=== PATIENT | male | born 1955 | race Caucasian/White ===

== ENCOUNTER 2017-03-17 20:57 | Emergency (ER) | payer OTHER ==
[2017-03-17] MEDS ORDERED: morphine 4 MG/ML VIAL IV (22:14)
[2017-03-17] MEDS: LIDOCAINE 2% 20 ML UROJET SYRINGE MM (22:18)
[2017-03-17] MEDS: morphine 4 MG/ML VIAL IM (22:37)
[2017-03-17 22:46] LABS: URINE PH (Dip) POC 8.5 (5.0-8.5)
[2017-03-17 22:46] LABS: URINE BLOOD (Dip) POC 3+ (NEGATIVE); URINE GLUCOSE (Dip) POC Negative (NEGATIVE); URINE KETONES (Dip) POC 1+ (NEGATIVE); URINE LEUKOCYTE EST (Dip) POC 3+ (NEGATIVE); URINE NITRITE (Dip) POC Negative (NEGATIVE); URINE TOTAL PROTEIN POC 3+ (NEGATIVE)
[2017-03-18 00:47] LABS: ADD MAN DIFF? NO
[2017-03-18 00:56] LABS: WHITE BLOOD COUNT 9.3 10^3/ul (4.8-10.8)
[2017-03-18 00:56] LABS: BASOPHILS % 0.4 % (0.0-2.0); EOSINOPHILS % 0.3 % (0.0-7.0); HEMATOCRIT 37.6 % (42.0-52.0); HEMOGLOBIN 12.7 g/dl (14.0-18.0); LYMPHOCYTES # 0.8 10^3/ul (0.8-2.9); MEAN CORPUSCULAR HEMOGLOBIN 28.6 pg (29.0-33.0); MEAN CORPUSCULAR HGB CONC 33.8 g/dl (32.0-37.0); MEAN CORPUSCULAR VOLUME 84.7 fl (82.0-101.0); MEAN PLATELET VOLUME 9.6 fl (7.4-10.4); MONOCYTE # 0.6 10^3/ul (0.3-0.9); MONOCYTES % 6.3 % (0.0-11.0); NEUTROPHIL # 7.8 10^3/ul (1.6-7.5); NEUTROPHILS % 83.8 % (39.0-77.0); PLATELET COUNT 279 10^3/UL (140-415); RED BLOOD COUNT 4.44 10^6/ul (4.70-6.10)
[2017-03-18 01:13] LABS: ANION GAP 18 (8-16); BLOOD UREA NITROGEN 19 mg/dl (7-20); CALCIUM 10.1 mg/dl (8.4-10.2); CARBON DIOXIDE 26 mmol/L (21-31); CHLORIDE 103 mmol/L (97-110); CREATININE 1.37 mg/dl (0.61-1.24); GLUCOSE 135 mg/dl (70-220); SODIUM 144 mmol/L (135-144)
[2017-03-18] MEDS: LABETALOL HCL 20MG INJ IV (01:13)
[2017-03-18] MEDS: morphine 4 MG/ML VIAL IV (01:16)
[2017-03-18 01:25] LABS: TROPONIN-I 0.056 ng/ml (0.00-0.12)
[2017-03-18 01:32] LABS: POTASSIUM 2.8 mmol/L (3.5-5.1)
[2017-03-18] MEDS: HYDROmorphONE 1 MG/ML SYG IV (01:56)
[2017-03-18] MEDS: hydrALAzine 20 MG INJ IV (02:17)
[2017-03-18] MEDS: SOD CHLORIDE 0.9% 1,000 ML IV ×2 (02:42→03:31)
[2017-03-18] MEDS: POTASSIUM CHLORIDE (SR) 20 MEQ TAB PO (02:52)
[2017-03-18] MEDS: POTASSIUM CHLORIDE (SR) 10 MEQ TAB PO (02:53)
[2017-03-18] MEDS: ONDANSETRON 4 MG INJ IV (02:53)
== END 2017-03-18 08:30 | disposition short-term general hospital (02) ==
LOC: E/R 20:57
DX: I16.1 Hypertensive emergency (principal); N28.9 Disorder of kidney and ureter, unspecified; I50.9 Heart failure, unspecified; E87.6 Hypokalemia; Z87.891 Personal history of nicotine dependence
CPT/HCPCS: 36415; 71045; 74176; 80048; 81003; 84484; 85025; 87086; 93005; 96372; 96374; 96375; 99291-25

== ENCOUNTER 2017-09-24 13:32 | Inpatient (IN) | payer OTHER ==
[2017-09-24 14:04] LABS: ADD MAN DIFF? NO
[2017-09-24 14:07] LABS: BASOPHILS % 0.2 % (0.0-2.0); HEMATOCRIT 30.7 % (42.0-52.0); HEMOGLOBIN 10.5 g/dl (14.0-18.0); LYMPHOCYTES # 0.7 10^3/ul (0.8-2.9); LYMPHOCYTES % 7.8 % (15.0-51.0); MEAN CORPUSCULAR HEMOGLOBIN 30.3 pg (29.0-33.0); MEAN CORPUSCULAR HGB CONC 34.2 g/dl (32.0-37.0); MEAN CORPUSCULAR VOLUME 88.7 fl (82.0-101.0); MEAN PLATELET VOLUME 9.1 fl (7.4-10.4); MONOCYTE # 0.8 10^3/ul (0.3-0.9); MONOCYTES % 9.9 % (0.0-11.0); NEUTROPHIL # 6.9 10^3/ul (1.6-7.5); NEUTROPHILS % 81.7 % (39.0-77.0); NUCLEATED RED BLOOD CELLS% 0.4 /100WBC (0.0-0.0); PLATELET COUNT 376 10^3/UL (140-415); RED BLOOD COUNT 3.46 10^6/ul (4.70-6.10); RED CELL DISTRIBUTION WIDTH 19.9 % (11.5-14.5)
[2017-09-24 14:07] LABS: WHITE BLOOD COUNT 8.5 10^3/ul (4.8-10.8)
[2017-09-24 14:24] LABS: ALANINE AMINOTRANSFERASE 199 IU/L (13-69); ALBUMIN 3.5 g/dl (3.3-4.9); ALBUMIN/GLOBULIN RATIO 0.97; ALKALINE PHOSPHATASE 333 IU/L (42-121); ANION GAP 15 (8-16); ASPARTATE AMINO TRANSFERASE 515 IU/L (15-46); BILIRUBIN,INDIRECT 2.1 mg/dl (0-1.1); BILIRUBIN,TOTAL 9.7 mg/dl (0.2-1.3); BLOOD UREA NITROGEN 43 mg/dl (7-20); CALCIUM 9.2 mg/dl (8.4-10.2); CARBON DIOXIDE 20 mmol/L (21-31); CHLORIDE 109 mmol/L (97-110); CREATININE 1.88 mg/dl (0.61-1.24); GLUCOSE 102 mg/dl (70-220); LIPASE 87 U/L (23-300); POTASSIUM 4.3 mmol/L (3.5-5.1); SODIUM 140 mmol/L (135-144); TOTAL PROTEIN 7.1 g/dl (6.1-8.1)
[2017-09-24 14:30] LABS: INR 1.14; PROTIME 14.8 Sec (11.9-14.9); PT RATIO 1.2
[2017-09-24 14:31] LABS: PARTIAL THROMBOPLASTIN TIME 30.8 Sec (25.0-35.0)
[2017-09-24] MEDS: HYDROmorphONE 1 MG/ML SYG IV (14:36)
[2017-09-24] MEDS: ONDANSETRON 4 MG INJ IV (14:36)
[2017-09-24] MEDS: SOD CHLORIDE 0.9% 1,000 ML IV (14:36)
[2017-09-24] MEDS ORDERED: ONDANSETRON 4 MG INJ IV (19:00)
[2017-09-24] MEDS ORDERED: ACETAMINOPHEN 325 MG TAB PO (19:00)
[2017-09-24] MEDS ORDERED: NACL 0.9% 3 ML SYG IV (19:00)
[2017-09-24 21:53] LABS: ADD UMIC YES; UR ASCORBIC ACID NEGATIVE (NEGATIVE); UR BACTERIA FEW /HPF (NONE SEEN); UR BILIRUBIN (Dip) 1+ mg/dL (NEGATIVE); UR BLOOD (Dip) 1+ mg/dL (NEGATIVE); UR CLARITY SLIGHTLY CLOUDY (CLEAR); UR COLOR AMBER (YELLOW); UR GLUCOSE (Dip) NEGATIVE (NEGATIVE); UR KETONES (Dip) NEGATIVE (NEGATIVE); UR LEUKOCYTE ESTERASE (Dip) 2+ Leu/ul (NEGATIVE); UR MUCUS FEW /HPF (NONE SEEN); UR NITRITE (Dip) NEGATIVE (NEGATIVE); UR RBC 7 /HPF (0-5); UR SPECIFIC GRAVITY (Dip) 1.016 (1.003-1.030); UR SQUAMOUS EPITHELIAL CELL FEW /HPF (FEW); UR TOTAL PROTEIN (Dip) 1+ mg/dl (NEGATIVE); UR UROBILINOGEN (Dip) 2+ mg/dL (NEGATIVE); UR WBC 87 /HPF (0-5)
[2017-09-24] MEDS: HEPARIN 5,000 UNIT/0.5 ML VIAL SC (23:31)
[2017-09-24] MEDS: HYDROmorphONE 0.5 MG/0.5 ML SYG IV (23:31)
[2017-09-25] MEDS: HEPARIN 5,000 UNIT/0.5 ML VIAL SC ×3 (06:12→23:14)
[2017-09-25] MEDS: HYDROmorphONE 0.5 MG/0.5 ML SYG IV ×3 (06:22→23:18)
[2017-09-25 08:04] LABS: ADD MAN DIFF? NO
[2017-09-25 08:09] LABS: WHITE BLOOD COUNT 8.5 10^3/ul (4.8-10.8)
[2017-09-25 08:09] LABS: BASOPHILS % 0.2 % (0.0-2.0); EOSINOPHILS % 0.1 % (0.0-7.0); HEMATOCRIT 31.7 % (42.0-52.0); HEMOGLOBIN 10.3 g/dl (14.0-18.0); LYMPHOCYTES # 0.7 10^3/ul (0.8-2.9); LYMPHOCYTES % 8.5 % (15.0-51.0); MEAN CORPUSCULAR HEMOGLOBIN 29.7 pg (29.0-33.0); MEAN CORPUSCULAR HGB CONC 32.5 g/dl (32.0-37.0); MEAN CORPUSCULAR VOLUME 91.4 fl (82.0-101.0); MEAN PLATELET VOLUME 10.1 fl (7.4-10.4); MONOCYTE # 0.9 10^3/ul (0.3-0.9); MONOCYTES % 10.1 % (0.0-11.0); NEUTROPHIL # 6.8 10^3/ul (1.6-7.5); NEUTROPHILS % 80.6 % (39.0-77.0); NUCLEATED RED BLOOD CELLS # 0.1 10^3/ul (0.0-0.0); NUCLEATED RED BLOOD CELLS% 0.7 /100WBC (0.0-0.0); PLATELET COUNT 367 10^3/UL (140-415); RED BLOOD COUNT 3.47 10^6/ul (4.70-6.10); RED CELL DISTRIBUTION WIDTH 20.7 % (11.5-14.5)
[2017-09-25 08:29] LABS: ALANINE AMINOTRANSFERASE 275 IU/L (13-69); ALBUMIN 3.2 g/dl (3.3-4.9); ALBUMIN/GLOBULIN RATIO 0.86; ALKALINE PHOSPHATASE 302 IU/L (42-121); ANION GAP 15 (8-16); ASPARTATE AMINO TRANSFERASE 714 IU/L (15-46); BILIRUBIN,INDIRECT 1.9 mg/dl (0-1.1); BILIRUBIN,TOTAL 10.1 mg/dl (0.2-1.3); BLOOD UREA NITROGEN 47 mg/dl (7-20); CALCIUM 9.1 mg/dl (8.4-10.2); CARBON DIOXIDE 21 mmol/L (21-31); CHLORIDE 110 mmol/L (97-110); CREATININE 2.14 mg/dl (0.61-1.24); GLUCOSE 91 mg/dl (70-220); POTASSIUM 4.8 mmol/L (3.5-5.1); SODIUM 141 mmol/L (135-144); TOTAL PROTEIN 6.9 g/dl (6.1-8.1)
[2017-09-25] MEDS ORDERED: LOSARTAN 50 MG TAB PO (09:00)
[2017-09-25] MEDS: BICALUTAMIDE 50 MG TAB PO (09:44)
[2017-09-25] MEDS: METOPROLOL (XL) 50 MG TAB PO (09:45)
[2017-09-25] MEDS ORDERED: POLYETHYLENE GLYCOL 17 GM PACKET PO (10:00)
[2017-09-25] MEDS: SOD CHLORIDE 0.9% 1,000 ML IV ×2 (10:30→18:58)
[2017-09-25] MEDS: CEFTRIAXONE 1 GM/50 ML (PMX) 50 ML IVPB (10:41)
[2017-09-25] MEDS: DOCUSATE SODIUM 100 MG CAP PO (10:41)
[2017-09-25] MEDS: oxyCODONE 5 MG TAB PO (13:56)
[2017-09-26] MEDS: SOD CHLORIDE 0.9% 1,000 ML IV (05:18)
[2017-09-26] MEDS: HEPARIN 5,000 UNIT/0.5 ML VIAL SC ×3 (05:20→21:45)
[2017-09-26] MEDS: HYDROmorphONE 0.5 MG/0.5 ML SYG IV (05:21)
[2017-09-26 07:26] LABS: ALANINE AMINOTRANSFERASE 398 IU/L (13-69); ALBUMIN 3.2 g/dl (3.3-4.9); ALBUMIN/GLOBULIN RATIO 0.84; ALKALINE PHOSPHATASE 288 IU/L (42-121); ANION GAP 20 (8-16); BILIRUBIN,INDIRECT 1.8 mg/dl (0-1.1); BILIRUBIN,TOTAL 10.1 mg/dl (0.2-1.3); BLOOD UREA NITROGEN 49 mg/dl (7-20); CARBON DIOXIDE 17 mmol/L (21-31); CHLORIDE 109 mmol/L (97-110); CREATININE 2.46 mg/dl (0.61-1.24); GLUCOSE 77 mg/dl (70-220); POTASSIUM 5.3 mmol/L (3.5-5.1); SODIUM 141 mmol/L (135-144)
[2017-09-26 07:35] LABS: ASPARTATE AMINO TRANSFERASE 1153 IU/L (15-46)
[2017-09-26] MEDS: oxyCODONE 5 MG TAB PO ×2 (07:41→21:44)
[2017-09-26] MEDS: DOCUSATE SODIUM 100 MG CAP PO (08:50)
[2017-09-26] MEDS: METOPROLOL (XL) 50 MG TAB PO (08:50)
[2017-09-26] MEDS: SOD CHLORIDE 0.45% 1,000 ML IV ×2 (09:18→21:46)
[2017-09-26] MEDS: NA POLYST SULFON 15 GM/60 ML BTL PO (10:09)
[2017-09-26] MEDS: CEFTRIAXONE 1 GM/50 ML (PMX) 50 ML IVPB (10:09)
[2017-09-26 14:23] LABS: CREATININE,URINE RANDOM 180.32 mg/dl (20-370)
[2017-09-26 14:25] LABS: SODIUM,URINE RANDOM < 13 mmol/L (30-90)
[2017-09-27] MEDS: HEPARIN 5,000 UNIT/0.5 ML VIAL SC ×3 (05:32→21:27)
[2017-09-27] MEDS: oxyCODONE 5 MG TAB PO ×2 (05:38→21:22)
[2017-09-27 06:48] LABS: ALKALINE PHOSPHATASE 266 IU/L (42-121)
[2017-09-27 06:57] LABS: ALANINE AMINOTRANSFERASE 604 IU/L (13-69); ALBUMIN 3.1 g/dl (3.3-4.9); ALBUMIN/GLOBULIN RATIO 0.86; ALKALINE PHOSPHATASE 271 IU/L (42-121); ANION GAP 21 (8-16); BILIRUBIN,INDIRECT 1.8 mg/dl (0-1.1); BILIRUBIN,TOTAL 10.3 mg/dl (0.2-1.3); BLOOD UREA NITROGEN 54 mg/dl (7-20); CALCIUM 8.6 mg/dl (8.4-10.2); CARBON DIOXIDE 15 mmol/L (21-31); CHLORIDE 108 mmol/L (97-110); CREATININE 2.65 mg/dl (0.61-1.24); GLUCOSE 83 mg/dl (70-220); POTASSIUM 5.4 mmol/L (3.5-5.1); SODIUM 139 mmol/L (135-144); TOTAL PROTEIN 6.7 g/dl (6.1-8.1)
[2017-09-27] MEDS: DOCUSATE SODIUM 100 MG CAP PO (09:00)
[2017-09-27] MEDS: CEFTRIAXONE 1 GM/50 ML (PMX) 50 ML IVPB (10:30)
[2017-09-27] MEDS: SOD CHLORIDE 0.45% 1,000 ML IV (10:30)
[2017-09-27] MEDS: METOPROLOL (XL) 50 MG TAB PO (10:31)
[2017-09-27] MEDS: NA POLYST SULFON 15 GM/60 ML BTL PO (10:32)
[2017-09-27] MEDS ORDERED: VITAMIN A & D 5 GM OINT PACKET TOP (11:11)
[2017-09-27] MEDS ORDERED: VANCOMYCIN IV PER PHARMACY XX (15:00)
[2017-09-27] MEDS: SODIUM BICARBONATE (IV ADD) 100 MEQ in DEXTROSE 5% 1,000 ML IV (18:39)
[2017-09-27] MEDS: VANCOMYCIN 1.25 GM in SOD CHLORIDE 0.9% 250 ML IVPB (18:39)
[2017-09-28] MEDS: oxyCODONE 5 MG TAB PO ×2 (03:15→20:31)
[2017-09-28 06:10] LABS: ALBUMIN/GLOBULIN RATIO 0.74; ANION GAP 19 (8-16); BILIRUBIN,TOTAL 10.1 mg/dl (0.2-1.3)
[2017-09-28 06:17] LABS: BLOOD UREA NITROGEN 60 mg/dl (7-20); CALCIUM 8.1 mg/dl (8.4-10.2); CARBON DIOXIDE 16 mmol/L (21-31); CHLORIDE 106 mmol/L (97-110); CREATININE 2.79 mg/dl (0.61-1.24); GLUCOSE 104 mg/dl (70-220); POTASSIUM 4.3 mmol/L (3.5-5.1); SODIUM 137 mmol/L (135-144)
[2017-09-28 06:18] LABS: ALANINE AMINOTRANSFERASE 494 IU/L (13-69); ALBUMIN 2.6 g/dl (3.3-4.9); ALKALINE PHOSPHATASE 214 IU/L (42-121); BILIRUBIN,INDIRECT 1.7 mg/dl (0-1.1); TOTAL PROTEIN 6.1 g/dl (6.1-8.1)
[2017-09-28] MEDS: HEPARIN 5,000 UNIT/0.5 ML VIAL SC ×3 (06:24→22:09)
[2017-09-28 06:27] LABS: ASPARTATE AMINO TRANSFERASE 1326 IU/L (15-46)
[2017-09-28] MEDS: DOCUSATE SODIUM 100 MG CAP PO (10:09)
[2017-09-28] MEDS: METOPROLOL (XL) 50 MG TAB PO (10:09)
[2017-09-28] MEDS: AMPICILLIN 1 GM/NS (PMX) 50 ML IVPB ×2 (12:44→17:37)
[2017-09-28] MEDS: SODIUM BICARBONATE (IV ADD) 100 MEQ in DEXTROSE 5% 1,000 ML IV (20:27)
[2017-09-29] MEDS ORDERED: VANCOMYCIN 750 MG in SOD CHLORIDE 0.9% 150 ML IVPB (05:00)
[2017-09-29] MEDS: AMPICILLIN 1 GM/NS (PMX) 50 ML IVPB ×5 (05:48→23:42)
[2017-09-29] MEDS: HEPARIN 5,000 UNIT/0.5 ML VIAL SC ×3 (05:50→21:53)
[2017-09-29 06:42] LABS: ALANINE AMINOTRANSFERASE 383 IU/L (13-69); ALBUMIN 2.6 g/dl (3.3-4.9); ALBUMIN/GLOBULIN RATIO 0.74; ALKALINE PHOSPHATASE 191 IU/L (42-121); ANION GAP 19 (8-16); BILIRUBIN,INDIRECT 1.7 mg/dl (0-1.1); BILIRUBIN,TOTAL 11.2 mg/dl (0.2-1.3); BLOOD UREA NITROGEN 69 mg/dl (7-20); CARBON DIOXIDE 18 mmol/L (21-31); CHLORIDE 103 mmol/L (97-110); CREATININE 3.02 mg/dl (0.61-1.24); GLUCOSE 95 mg/dl (70-220); POTASSIUM 4.2 mmol/L (3.5-5.1); SODIUM 136 mmol/L (135-144); TOTAL PROTEIN 6.1 g/dl (6.1-8.1)
[2017-09-29 07:15] LABS: ASPARTATE AMINO TRANSFERASE 787 IU/L (15-46)
[2017-09-29] MEDS: MIDODRINE 5 MG TAB PO ×2 (08:46→16:53)
[2017-09-29] MEDS: METOPROLOL (XL) 50 MG TAB PO (08:47)
[2017-09-29] MEDS: DOCUSATE SODIUM 100 MG CAP PO (08:47)
[2017-09-29] MEDS: OCTREOTIDE 50 MCG INJ SC ×3 (10:31→20:33)
[2017-09-29] MEDS: ZOLPIDEM 5 MG TAB PO (23:46)
[2017-09-30] MEDS: oxyCODONE 5 MG TAB PO (00:50)
[2017-09-30] MEDS: AMPICILLIN 1 GM/NS (PMX) 50 ML IVPB ×3 (05:40→18:00)
[2017-09-30] MEDS: HEPARIN 5,000 UNIT/0.5 ML VIAL SC ×3 (05:42→22:51)
[2017-09-30 05:56] LABS: ADD MAN DIFF? NO
[2017-09-30 06:00] LABS: ABNORMAL IP MESSAGE 1; BASOPHILS % 0.2 % (0.0-2.0); EOSINOPHILS % 0.1 % (0.0-7.0); HEMATOCRIT 33.1 % (42.0-52.0); HEMOGLOBIN 11.1 g/dl (14.0-18.0); LYMPHOCYTES # 0.4 10^3/ul (0.8-2.9); LYMPHOCYTES % 4.2 % (15.0-51.0); MEAN CORPUSCULAR HEMOGLOBIN 29.8 pg (29.0-33.0); MEAN CORPUSCULAR HGB CONC 33.5 g/dl (32.0-37.0); MEAN PLATELET VOLUME 10.2 fl (7.4-10.4); MONOCYTES % 10.8 % (0.0-11.0); NEUTROPHIL # 7.5 10^3/ul (1.6-7.5); PLATELET COUNT 335 10^3/UL (140-415); POSITIVE DIFF @See below; RED BLOOD COUNT 3.72 10^6/ul (4.70-6.10); RED CELL DISTRIBUTION WIDTH 24.2 % (11.5-14.5)
[2017-09-30 06:40] LABS: PHOSPHORUS 6.5 mg/dl (2.5-4.9)
[2017-09-30 06:40] LABS: MAGNESIUM 2.4 mg/dl (1.7-2.5)
[2017-09-30 06:59] LABS: ANION GAP 23 (8-16); BLOOD UREA NITROGEN 78 mg/dl (7-20); CARBON DIOXIDE 17 mmol/L (21-31); CHLORIDE 100 mmol/L (97-110); GLUCOSE 92 mg/dl (70-220); SODIUM 136 mmol/L (135-144)
[2017-09-30 07:11] LABS: CREATININE 3.49 mg/dl (0.61-1.24)
[2017-09-30] MEDS: DOCUSATE SODIUM 100 MG CAP PO (09:17)
[2017-09-30] MEDS: CITRIC ACID/SODIUM CITRATE 15 ML CUP PO ×3 (09:17→21:02)
[2017-09-30] MEDS: FAMOTIDINE 20 MG TAB PO (09:17)
[2017-09-30] MEDS: OCTREOTIDE 50 MCG INJ SC ×3 (09:17→22:52)
[2017-09-30] MEDS: POLYETHYLENE GLYCOL 17 GM PACKET PO (09:17)
[2017-09-30] MEDS: MIDODRINE 5 MG TAB PO ×2 (09:19→17:52)
[2017-09-30 11:57] LABS: AMMONIA 32 umol/l (9-30)
[2017-09-30 12:04] LABS: INR 1.37; PARTIAL THROMBOPLASTIN TIME 35.2 Sec (25.0-35.0); PROTIME 17.1 Sec (11.9-14.9); PT RATIO 1.3
[2017-09-30 12:17] LABS: ANA SCREEN NEGATIVE (NEGATIVE)
[2017-09-30 13:46] LABS: MITOCHONDRIAL TB NEGATIVE (NEGATIVE); SMOOTH MUSCLE AB SCREEN POSITIVE (NEGATIVE); SMOOTH MUSCLE AB TITER 1:40 titer (<1:20)
[2017-10-01] MEDS: AMPICILLIN 1 GM/NS (PMX) 50 ML IVPB ×4 (00:15→18:05)
[2017-10-01 05:52] LABS: ADD MAN DIFF? NO
[2017-10-01] MEDS: HEPARIN 5,000 UNIT/0.5 ML VIAL SC ×3 (05:55→21:49)
[2017-10-01 06:01] LABS: WHITE BLOOD COUNT 7.1 10^3/ul (4.8-10.8)
[2017-10-01 06:01] LABS: ABNORMAL IP MESSAGE 1; BASOPHILS % 0.4 % (0.0-2.0); EOSINOPHILS # 0.1 10^3/ul (0.0-0.5); EOSINOPHILS % 0.7 % (0.0-7.0); HEMATOCRIT 32.3 % (42.0-52.0); HEMOGLOBIN 11.1 g/dl (14.0-18.0); LYMPHOCYTES # 0.3 10^3/ul (0.8-2.9); LYMPHOCYTES % 3.7 % (15.0-51.0); MEAN CORPUSCULAR HEMOGLOBIN 31.2 pg (29.0-33.0); MEAN CORPUSCULAR HGB CONC 34.4 g/dl (32.0-37.0); MEAN CORPUSCULAR VOLUME 90.7 fl (82.0-101.0); MONOCYTE # 0.8 10^3/ul (0.3-0.9); MONOCYTES % 10.6 % (0.0-11.0); NUCLEATED RED BLOOD CELLS% 0.3 /100WBC (0.0-0.0); PLATELET COUNT 309 10^3/UL (140-415); POSITIVE DIFF @See below; RED BLOOD COUNT 3.56 10^6/ul (4.70-6.10); RED CELL DISTRIBUTION WIDTH 24.3 % (11.5-14.5)
[2017-10-01 06:22] LABS: INR 1.42; PROTIME 17.6 Sec (11.9-14.9); PT RATIO 1.4
[2017-10-01 06:54] LABS: ALANINE AMINOTRANSFERASE 255 IU/L (13-69); ALBUMIN 2.6 g/dl (3.3-4.9); ALBUMIN/GLOBULIN RATIO 0.74; ALKALINE PHOSPHATASE 181 IU/L (42-121); ANION GAP 19 (8-16); ASPARTATE AMINO TRANSFERASE 477 IU/L (15-46); BILIRUBIN,INDIRECT 1.5 mg/dl (0-1.1); BILIRUBIN,TOTAL 11.8 mg/dl (0.2-1.3); BLOOD UREA NITROGEN 89 mg/dl (7-20); CALCIUM 7.9 mg/dl (8.4-10.2); CARBON DIOXIDE 19 mmol/L (21-31); CHLORIDE 102 mmol/L (97-110); GLUCOSE 93 mg/dl (70-220); POTASSIUM 4.3 mmol/L (3.5-5.1); SODIUM 136 mmol/L (135-144); TOTAL PROTEIN 6.1 g/dl (6.1-8.1)
[2017-10-01 08:33] LABS: PHOSPHORUS 7.2 mg/dl (2.5-4.9)
[2017-10-01 08:33] LABS: MAGNESIUM 2.5 mg/dl (1.7-2.5)
[2017-10-01] MEDS: POLYETHYLENE GLYCOL 17 GM PACKET PO ×2 (09:00→14:33)
[2017-10-01] MEDS: CITRIC ACID/SODIUM CITRATE 15 ML CUP PO ×3 (09:33→21:47)
[2017-10-01] MEDS: MIDODRINE 5 MG TAB PO ×2 (09:36→18:05)
[2017-10-01] MEDS: ALBUMIN HUMAN 25% 100 ML IV ×2 (09:40→18:05)
[2017-10-01] MEDS: FAMOTIDINE 20 MG TAB PO (09:40)
[2017-10-01] MEDS: DOCUSATE SODIUM 100 MG CAP PO (09:40)
[2017-10-01] MEDS: OCTREOTIDE 50 MCG INJ SC ×3 (09:41→21:47)
[2017-10-01] MEDS: oxyCODONE 5 MG TAB PO ×2 (14:33→22:15)
[2017-10-02] MEDS: AMPICILLIN 1 GM/NS (PMX) 50 ML IVPB ×4 (00:09→22:31)
[2017-10-02] MEDS: ALBUMIN HUMAN 25% 100 ML IV ×3 (01:41→17:57)
[2017-10-02] MEDS: oxyCODONE 5 MG TAB PO (02:54)
[2017-10-02] MEDS ORDERED: morphine 2 MG INJ IV (04:00)
[2017-10-02] MEDS: HEPARIN 5,000 UNIT/0.5 ML VIAL SC ×2 (05:00→13:43)
[2017-10-02 05:57] LABS: ADD MAN DIFF? NO
[2017-10-02 06:04] LABS: WHITE BLOOD COUNT 7.4 10^3/ul (4.8-10.8)
[2017-10-02 06:04] LABS: ABNORMAL IP MESSAGE 1; BASOPHILS % 0.3 % (0.0-2.0); EOSINOPHILS % 0.1 % (0.0-7.0); HEMATOCRIT 29.1 % (42.0-52.0); HEMOGLOBIN 9.8 g/dl (14.0-18.0); LYMPHOCYTES # 0.2 10^3/ul (0.8-2.9); LYMPHOCYTES % 2.3 % (15.0-51.0); MEAN CORPUSCULAR HEMOGLOBIN 30.4 pg (29.0-33.0); MEAN CORPUSCULAR HGB CONC 33.7 g/dl (32.0-37.0); MEAN CORPUSCULAR VOLUME 90.4 fl (82.0-101.0); MEAN PLATELET VOLUME 10.4 fl (7.4-10.4); MONOCYTE # 0.7 10^3/ul (0.3-0.9); MONOCYTES % 9.2 % (0.0-11.0); NEUTROPHIL # 6.5 10^3/ul (1.6-7.5); NEUTROPHILS % 87.7 % (39.0-77.0); PLATELET COUNT 291 10^3/UL (140-415); POSITIVE DIFF @See below; RED BLOOD COUNT 3.22 10^6/ul (4.70-6.10); RED CELL DISTRIBUTION WIDTH 24.9 % (11.5-14.5)
[2017-10-02 06:29] LABS: ALANINE AMINOTRANSFERASE 176 IU/L (13-69); ALBUMIN 3.4 g/dl (3.3-4.9); ALBUMIN/GLOBULIN RATIO 1.06; ALKALINE PHOSPHATASE 133 IU/L (42-121); ANION GAP 25 (8-16); ASPARTATE AMINO TRANSFERASE 337 IU/L (15-46); BILIRUBIN,INDIRECT 2.2 mg/dl (0-1.1); BILIRUBIN,TOTAL 15.8 mg/dl (0.2-1.3); BLOOD UREA NITROGEN 93 mg/dl (7-20); CALCIUM 8.3 mg/dl (8.4-10.2); CARBON DIOXIDE 19 mmol/L (21-31); CHLORIDE 99 mmol/L (97-110); GLUCOSE 90 mg/dl (70-220); POTASSIUM 3.8 mmol/L (3.5-5.1); SODIUM 139 mmol/L (135-144); TOTAL PROTEIN 6.6 g/dl (6.1-8.1)
[2017-10-02 06:31] LABS: PHOSPHORUS 6.7 mg/dl (2.5-4.9)
[2017-10-02 06:31] LABS: INR 1.48; MAGNESIUM 2.5 mg/dl (1.7-2.5); PROTIME 18.2 Sec (11.9-14.9); PT RATIO 1.4
[2017-10-02 06:32] LABS: PARTIAL THROMBOPLASTIN TIME 46.6 Sec (25.0-35.0)
[2017-10-02 06:39] LABS: AMMONIA 69 umol/l (9-30)
[2017-10-02] MEDS: CITRIC ACID/SODIUM CITRATE 15 ML CUP PO ×3 (09:23→22:31)
[2017-10-02] MEDS: DOCUSATE SODIUM 100 MG CAP PO (09:23)
[2017-10-02] MEDS: POLYETHYLENE GLYCOL 17 GM PACKET PO (09:23)
[2017-10-02] MEDS: OCTREOTIDE 50 MCG INJ SC ×3 (09:23→22:32)
[2017-10-02] MEDS: FAMOTIDINE 20 MG TAB PO (09:23)
[2017-10-02] MEDS: MIDODRINE 5 MG TAB PO ×2 (09:30→17:56)
[2017-10-02] MEDS: LACTULOSE 30ML CUP PO ×2 (14:05→22:31)
[2017-10-02 14:43] LABS: HAAIG REFLEX REFLEX FILED
[2017-10-02 18:17] LABS: HEPATITIS B SURFACE ANTIGEN NEGATIVE (NEGATIVE)
[2017-10-02 18:29] LABS: HEPATITIS B CORE ANTIBODY NEGATIVE (NEGATIVE)
[2017-10-02 18:35] LABS: HEPATITIS C VIRAL ANTIBODY NEGATIVE (NEGATIVE)
[2017-10-02] MEDS: RIFAXIMIN 550 MG TAB PO (22:31)
[2017-10-03] MEDS: AMPICILLIN 1 GM/NS (PMX) 50 ML IVPB ×5 (00:41→23:38)
[2017-10-03] MEDS: ALBUMIN HUMAN 25% 100 ML IV ×3 (00:43→20:56)
[2017-10-03 05:39] LABS: ADD MAN DIFF? NO; HAAIG REFLEX REFLEX FILED
[2017-10-03 05:47] LABS: WHITE BLOOD COUNT 7.7 10^3/ul (4.8-10.8)
[2017-10-03 05:47] LABS: ABNORMAL IP MESSAGE 1; BASOPHILS % 0.3 % (0.0-2.0); EOSINOPHILS # 0.1 10^3/ul (0.0-0.5); EOSINOPHILS % 0.8 % (0.0-7.0); HEMATOCRIT 29.1 % (42.0-52.0); HEMOGLOBIN 9.8 g/dl (14.0-18.0); LYMPHOCYTES # 0.3 10^3/ul (0.8-2.9); LYMPHOCYTES % 4.4 % (15.0-51.0); MEAN CORPUSCULAR HEMOGLOBIN 31.1 pg (29.0-33.0); MEAN CORPUSCULAR HGB CONC 33.7 g/dl (32.0-37.0); MEAN CORPUSCULAR VOLUME 92.4 fl (82.0-101.0); MEAN PLATELET VOLUME 10.1 fl (7.4-10.4); MONOCYTE # 0.9 10^3/ul (0.3-0.9); MONOCYTES % 11.8 % (0.0-11.0); NEUTROPHIL # 6.3 10^3/ul (1.6-7.5); NEUTROPHILS % 81.8 % (39.0-77.0); PLATELET COUNT 259 10^3/UL (140-415); POSITIVE DIFF @See below; RED BLOOD COUNT 3.15 10^6/ul (4.70-6.10); RED CELL DISTRIBUTION WIDTH 26.1 % (11.5-14.5)
[2017-10-03 05:59] LABS: ALANINE AMINOTRANSFERASE 130 IU/L (13-69); ALBUMIN 3.4 g/dl (3.3-4.9); ALBUMIN/GLOBULIN RATIO 1.13; ALKALINE PHOSPHATASE 110 IU/L (42-121); ANION GAP 21 (8-16); ASPARTATE AMINO TRANSFERASE 243 IU/L (15-46); BILIRUBIN,INDIRECT 2.5 mg/dl (0-1.1); BILIRUBIN,TOTAL 16.6 mg/dl (0.2-1.3); BLOOD UREA NITROGEN 103 mg/dl (7-20); CALCIUM 8.5 mg/dl (8.4-10.2); CARBON DIOXIDE 23 mmol/L (21-31); CHLORIDE 101 mmol/L (97-110); GLUCOSE 79 mg/dl (70-220); SODIUM 141 mmol/L (135-144); TOTAL PROTEIN 6.4 g/dl (6.1-8.1)
[2017-10-03 06:05] LABS: AMMONIA 76 umol/l (9-30)
[2017-10-03 06:06] LABS: CREATININE 3.55 mg/dl (0.61-1.24)
[2017-10-03] MEDS: LACTULOSE 30ML CUP PO ×3 (06:21→23:38)
[2017-10-03 06:27] LABS: HEPATITIS B SURFACE ANTIGEN NEGATIVE (NEGATIVE)
[2017-10-03 06:42] LABS: MAGNESIUM 2.6 mg/dl (1.7-2.5)
[2017-10-03 06:42] LABS: PHOSPHORUS 7.4 mg/dl (2.5-4.9)
[2017-10-03 06:45] LABS: HEPATITIS C VIRAL ANTIBODY NEGATIVE (NEGATIVE); HIV 1&2 ANTIBODY NEGATIVE (NEGATIVE)
[2017-10-03 06:46] LABS: HEPATITIS B CORE ANTIBODY NEGATIVE (NEGATIVE)
[2017-10-03] MEDS: RIFAXIMIN 550 MG TAB PO ×2 (09:38→23:40)
[2017-10-03] MEDS: FAMOTIDINE 20 MG TAB PO (09:38)
[2017-10-03] MEDS: POLYETHYLENE GLYCOL 17 GM PACKET PO (09:38)
[2017-10-03] MEDS: MIDODRINE 5 MG TAB PO ×2 (09:38→17:23)
[2017-10-03] MEDS: DOCUSATE SODIUM 100 MG CAP PO (09:38)
[2017-10-03] MEDS: CITRIC ACID/SODIUM CITRATE 15 ML CUP PO ×3 (09:38→23:39)
[2017-10-03] MEDS: OCTREOTIDE 50 MCG INJ SC ×3 (09:39→23:39)
[2017-10-03] MEDS: morphine LIQ (10 MG/5 ML) CUP PO (09:39)
[2017-10-03] MEDS: AMIODARONE 150MG/D5W BOLUS 100 ML IV ×2 (10:30→23:38)
[2017-10-03 11:14] LABS: MAGNESIUM 2.6 mg/dl (1.7-2.5)
[2017-10-03 11:19] LABS: ANION GAP 24 (8-16); BLOOD UREA NITROGEN 99 mg/dl (7-20); CALCIUM 8.4 mg/dl (8.4-10.2); CARBON DIOXIDE 20 mmol/L (21-31); CHLORIDE 99 mmol/L (97-110); GLUCOSE 90 mg/dl (70-220); POTASSIUM 3.9 mmol/L (3.5-5.1); SODIUM 139 mmol/L (135-144)
[2017-10-03 11:32] LABS: CREATININE 3.61 mg/dl (0.61-1.24)
[2017-10-03] MEDS: AMIODARONE 900 MG in DEXTROSE 5% 482 ML IV (11:48)
[2017-10-03] MEDS: LIDOCAINE 1% (MPF) 5 ML VIAL SC (14:10)
[2017-10-03] MEDS: SOD CHLORIDE 0.9% 100 ML (14:45)
[2017-10-03] MEDS: HEPARIN 1000 UNITS/ML 10 ML INJ CATHETER (22:55)
[2017-10-04 05:23] LABS: ADD MAN DIFF? NO
[2017-10-04 05:26] LABS: ABNORMAL IP MESSAGE 1; BASOPHILS % 0.4 % (0.0-2.0); EOSINOPHILS # 0.1 10^3/ul (0.0-0.5); EOSINOPHILS % 0.8 % (0.0-7.0); HEMATOCRIT 26.6 % (42.0-52.0); HEMOGLOBIN 8.7 g/dl (14.0-18.0); LYMPHOCYTES # 0.4 10^3/ul (0.8-2.9); LYMPHOCYTES % 4.9 % (15.0-51.0); MEAN CORPUSCULAR HEMOGLOBIN 30.5 pg (29.0-33.0); MEAN CORPUSCULAR HGB CONC 32.7 g/dl (32.0-37.0); MEAN CORPUSCULAR VOLUME 93.3 fl (82.0-101.0); MEAN PLATELET VOLUME 10.1 fl (7.4-10.4); MONOCYTE # 0.9 10^3/ul (0.3-0.9); MONOCYTES % 11.6 % (0.0-11.0); NEUTROPHIL # 6.2 10^3/ul (1.6-7.5); NEUTROPHILS % 81.6 % (39.0-77.0); NUCLEATED RED BLOOD CELLS% 0.3 /100WBC (0.0-0.0); PLATELET COUNT 244 10^3/UL (140-415); POSITIVE DIFF @See below; RED BLOOD COUNT 2.85 10^6/ul (4.70-6.10); RED CELL DISTRIBUTION WIDTH 26.2 % (11.5-14.5)
[2017-10-04 05:26] LABS: WHITE BLOOD COUNT 7.5 10^3/ul (4.8-10.8)
[2017-10-04 05:56] LABS: INR 1.91; PROTIME 22.3 Sec (11.9-14.9); PT RATIO 1.7
[2017-10-04 05:57] LABS: PARTIAL THROMBOPLASTIN TIME 42.5 Sec (25.0-35.0)
[2017-10-04] MEDS: LACTULOSE 30ML CUP PO ×3 (06:00→21:38)
[2017-10-04] MEDS: AMPICILLIN 1 GM/NS (PMX) 50 ML IVPB ×4 (06:00→21:38)
[2017-10-04 06:02] LABS: MAGNESIUM 2.3 mg/dl (1.7-2.5)
[2017-10-04 06:02] LABS: PHOSPHORUS 5.1 mg/dl (2.5-4.9)
[2017-10-04 06:11] LABS: AMMONIA 54 umol/l (9-30)
[2017-10-04 06:18] LABS: ALANINE AMINOTRANSFERASE 96 IU/L (13-69); ALBUMIN 3.3 g/dl (3.3-4.9); ALBUMIN/GLOBULIN RATIO 1.26; ALKALINE PHOSPHATASE 79 IU/L (42-121); ANION GAP 19 (8-16); ASPARTATE AMINO TRANSFERASE 190 IU/L (15-46); BILIRUBIN,INDIRECT 3.1 mg/dl (0-1.1); BILIRUBIN,TOTAL 15.4 mg/dl (0.2-1.3); BLOOD UREA NITROGEN 65 mg/dl (7-20); CALCIUM 8.7 mg/dl (8.4-10.2); CARBON DIOXIDE 24 mmol/L (21-31); CHLORIDE 99 mmol/L (97-110); GLUCOSE 138 mg/dl (70-220); POTASSIUM 3.6 mmol/L (3.5-5.1); SODIUM 138 mmol/L (135-144); TOTAL PROTEIN 5.9 g/dl (6.1-8.1)
[2017-10-04] MEDS: OCTREOTIDE 50 MCG INJ SC ×2 (08:01→13:20)
[2017-10-04] MEDS: POLYETHYLENE GLYCOL 17 GM PACKET PO (08:01)
[2017-10-04] MEDS: RIFAXIMIN 550 MG TAB PO ×2 (08:01→21:38)
[2017-10-04] MEDS: CITRIC ACID/SODIUM CITRATE 15 ML CUP PO ×3 (08:01→21:38)
[2017-10-04] MEDS: DOCUSATE SODIUM 100 MG CAP PO (08:01)
[2017-10-04] MEDS: FAMOTIDINE 20 MG TAB PO (08:01)
[2017-10-04] MEDS: MIDODRINE 5 MG TAB PO ×2 (08:01→17:02)
[2017-10-04] MEDS ORDERED: ALBUMIN HUMAN 25% 100 ML (10:01)
[2017-10-04] MEDS: ALBUMIN HUMAN 25% 100 ML IV ×2 (10:27→11:39)
[2017-10-04] MEDS: HEPARIN 1000 UNITS/ML 10 ML INJ CATHETER (12:56)
[2017-10-04] MEDS: AMIODARONE 200 MG TAB PO (15:00)
[2017-10-04] MEDS ORDERED: DIGOXIN 500 MCG INJ IV (15:30)
[2017-10-04] MEDS: DIGOXIN 500 MCG INJ IV (15:45)
[2017-10-04] MEDS: DILTIAZEM-D5W 125MG/125ML DRIP 125 ML IV (16:23)
[2017-10-05] MEDS: OCTREOTIDE 50 MCG INJ SC ×4 (01:33→22:04)
[2017-10-05] MEDS: DILTIAZEM-D5W 125MG/125ML DRIP 125 ML IV ×2 (01:33→17:16)
[2017-10-05] MEDS: LACTULOSE 30ML CUP PO ×2 (06:05→21:19)
[2017-10-05] MEDS: AMPICILLIN 1 GM/NS (PMX) 50 ML IVPB ×3 (06:05→17:43)
[2017-10-05 06:54] LABS: ADD MAN DIFF? NO
[2017-10-05 07:10] LABS: WHITE BLOOD COUNT 6.8 10^3/ul (4.8-10.8)
[2017-10-05 07:10] LABS: ABNORMAL IP MESSAGE 1; BASOPHILS % 0.1 % (0.0-2.0); EOSINOPHILS % 0.6 % (0.0-7.0); HEMATOCRIT 29.3 % (42.0-52.0); HEMOGLOBIN 9.3 g/dl (14.0-18.0); LYMPHOCYTES # 0.3 10^3/ul (0.8-2.9); LYMPHOCYTES % 4.4 % (15.0-51.0); MEAN CORPUSCULAR HEMOGLOBIN 30.5 pg (29.0-33.0); MEAN CORPUSCULAR HGB CONC 31.7 g/dl (32.0-37.0); MEAN CORPUSCULAR VOLUME 96.1 fl (82.0-101.0); MEAN PLATELET VOLUME 10.3 fl (7.4-10.4); MONOCYTE # 0.7 10^3/ul (0.3-0.9); MONOCYTES % 10.2 % (0.0-11.0); NEUTROPHIL # 5.7 10^3/ul (1.6-7.5); NUCLEATED RED BLOOD CELLS # 0.1 10^3/ul (0.0-0.0); NUCLEATED RED BLOOD CELLS% 0.7 /100WBC (0.0-0.0); PLATELET COUNT 240 10^3/UL (140-415); POSITIVE DIFF @See below; RED BLOOD COUNT 3.05 10^6/ul (4.70-6.10); RED CELL DISTRIBUTION WIDTH 26.7 % (11.5-14.5)
[2017-10-05 07:22] LABS: ALANINE AMINOTRANSFERASE 87 IU/L (13-69); ALBUMIN 3.5 g/dl (3.3-4.9); ALBUMIN/GLOBULIN RATIO 1.29; ALKALINE PHOSPHATASE 80 IU/L (42-121); ANION GAP 18 (8-16); ASPARTATE AMINO TRANSFERASE 198 IU/L (15-46); BILIRUBIN,INDIRECT 3.1 mg/dl (0-1.1); BILIRUBIN,TOTAL 14.5 mg/dl (0.2-1.3); BLOOD UREA NITROGEN 48 mg/dl (7-20); CARBON DIOXIDE 26 mmol/L (21-31); CHLORIDE 101 mmol/L (97-110); GLUCOSE 109 mg/dl (70-220); MAGNESIUM 2.2 mg/dl (1.7-2.5); POTASSIUM 3.8 mmol/L (3.5-5.1); SODIUM 141 mmol/L (135-144); TOTAL PROTEIN 6.2 g/dl (6.1-8.1)
[2017-10-05 07:26] LABS: DIGOXIN < 0.4 ng/ml (1.0-2.0)
[2017-10-05 07:36] LABS: FREE T4 (FREE THYROXINE) 1.37 ng/dl (0.78-2.44)
[2017-10-05 07:50] LABS: THYROID STIMULATING HORMONE 0.449 MIU/L (0.465-4.680)
[2017-10-05] MEDS: CITRIC ACID/SODIUM CITRATE 15 ML CUP PO ×3 (09:07→21:19)
[2017-10-05] MEDS: DOCUSATE SODIUM 100 MG CAP PO (09:08)
[2017-10-05] MEDS: RIFAXIMIN 550 MG TAB PO ×2 (09:08→21:19)
[2017-10-05] MEDS: FAMOTIDINE 20 MG TAB PO (09:08)
[2017-10-05] MEDS: AMIODARONE 200 MG TAB PO (09:08)
[2017-10-05] MEDS: POLYETHYLENE GLYCOL 17 GM PACKET PO (09:08)
[2017-10-05] MEDS: MIDODRINE 5 MG TAB PO ×2 (09:46→17:43)
[2017-10-05] MEDS: ALBUMIN HUMAN 25% 100 ML IV (14:45)
[2017-10-05] MEDS: DIGOXIN 500 MCG INJ IV (15:04)
[2017-10-05] MEDS ORDERED: HEPARIN 1000 UNITS/ML 10 ML INJ (16:39)
[2017-10-05] MEDS: HEPARIN 1000 UNITS/ML 10 ML INJ CATHETER (16:41)
[2017-10-05] MEDS: oxyCODONE 5 MG TAB PO (18:47)
[2017-10-05] MEDS: ZOLPIDEM 5 MG TAB PO (21:21)
[2017-10-06] MEDS: AMPICILLIN 1 GM/NS (PMX) 50 ML IVPB ×3 (00:15→11:24)
[2017-10-06 06:06] LABS: ADD MAN DIFF? NO
[2017-10-06 06:10] LABS: ABNORMAL IP MESSAGE 1; BASOPHILS % 0.2 % (0.0-2.0); EOSINOPHILS # 0.1 10^3/ul (0.0-0.5); EOSINOPHILS % 0.8 % (0.0-7.0); HEMATOCRIT 30.9 % (42.0-52.0); LYMPHOCYTES # 0.5 10^3/ul (0.8-2.9); LYMPHOCYTES % 5.8 % (15.0-51.0); MEAN CORPUSCULAR HEMOGLOBIN 31.1 pg (29.0-33.0); MEAN CORPUSCULAR HGB CONC 32.4 g/dl (32.0-37.0); MONOCYTE # 0.9 10^3/ul (0.3-0.9); MONOCYTES % 9.8 % (0.0-11.0); NEUTROPHIL # 7.3 10^3/ul (1.6-7.5); NEUTROPHILS % 82.4 % (39.0-77.0); NUCLEATED RED BLOOD CELLS # 0.1 10^3/ul (0.0-0.0); NUCLEATED RED BLOOD CELLS% 0.7 /100WBC (0.0-0.0); PLATELET COUNT 251 10^3/UL (140-415); POSITIVE DIFF @See below; RED BLOOD COUNT 3.22 10^6/ul (4.70-6.10); RED CELL DISTRIBUTION WIDTH 26.7 % (11.5-14.5)
[2017-10-06 06:10] LABS: WHITE BLOOD COUNT 8.9 10^3/ul (4.8-10.8)
[2017-10-06 06:27] LABS: INR 1.87; PROTIME 21.9 Sec (11.9-14.9); PT RATIO 1.7
[2017-10-06 06:28] LABS: PARTIAL THROMBOPLASTIN TIME 38.3 Sec (25.0-35.0)
[2017-10-06 06:34] LABS: PHOSPHORUS 4.4 mg/dl (2.5-4.9)
[2017-10-06 06:34] LABS: MAGNESIUM 2.2 mg/dl (1.7-2.5)
[2017-10-06 06:36] LABS: AMMONIA 25 umol/l (9-30)
[2017-10-06 06:36] LABS: ALANINE AMINOTRANSFERASE 91 IU/L (13-69); ALBUMIN 3.5 g/dl (3.3-4.9); ALKALINE PHOSPHATASE 76 IU/L (42-121); ANION GAP 20 (8-16); ASPARTATE AMINO TRANSFERASE 273 IU/L (15-46); BILIRUBIN,INDIRECT 2.9 mg/dl (0-1.1); BLOOD UREA NITROGEN 34 mg/dl (7-20); CALCIUM 9.3 mg/dl (8.4-10.2); CARBON DIOXIDE 24 mmol/L (21-31); CHLORIDE 100 mmol/L (97-110); CREATININE 3.19 mg/dl (0.61-1.24); GLUCOSE 84 mg/dl (70-220); SODIUM 140 mmol/L (135-144); TOTAL PROTEIN 6.4 g/dl (6.1-8.1)
[2017-10-06] MEDS ORDERED: ADENOSINE 3 MG/ML 2ML VIAL IV (07:00)
[2017-10-06] MEDS ORDERED: AMIODARONE 150 MG INJ (07:00)
[2017-10-06] MEDS: FAMOTIDINE 20 MG TAB PO (08:00)
[2017-10-06] MEDS: RIFAXIMIN 550 MG TAB PO ×2 (08:00→22:05)
[2017-10-06] MEDS: AMIODARONE 200 MG TAB PO (08:00)
[2017-10-06] MEDS: DOCUSATE SODIUM 100 MG CAP PO (08:01)
[2017-10-06] MEDS: MIDODRINE 5 MG TAB PO ×2 (08:01→17:17)
[2017-10-06] MEDS: OCTREOTIDE 50 MCG INJ SC ×3 (08:01→23:25)
[2017-10-06] MEDS: POLYETHYLENE GLYCOL 17 GM PACKET PO (08:02)
[2017-10-06] MEDS: CITRIC ACID/SODIUM CITRATE 15 ML CUP PO ×3 (08:02→22:05)
[2017-10-06] MEDS: LACTULOSE 30ML CUP PO ×2 (08:02→22:05)
[2017-10-06] MEDS ORDERED: KETOROLAC 60 MG INJ IM (21:26)
[2017-10-06] MEDS ORDERED: KETOROLAC 15 MG INJ IM (21:30)
[2017-10-07] MEDS: DILTIAZEM-D5W 125MG/125ML DRIP 125 ML IV (00:14)
[2017-10-07 05:17] LABS: INR 1.91; PROTIME 22.3 Sec (11.9-14.9); PT RATIO 1.7
[2017-10-07 05:18] LABS: PARTIAL THROMBOPLASTIN TIME 36.6 Sec (25.0-35.0)
[2017-10-07 05:22] LABS: ALANINE AMINOTRANSFERASE 170 IU/L (13-69); ALBUMIN 3.3 g/dl (3.3-4.9); ALBUMIN/GLOBULIN RATIO 1.06; ALKALINE PHOSPHATASE 75 IU/L (42-121); ANION GAP 22 (8-16); BILIRUBIN,INDIRECT 2.6 mg/dl (0-1.1); BILIRUBIN,TOTAL 13.7 mg/dl (0.2-1.3); BLOOD UREA NITROGEN 41 mg/dl (7-20); CARBON DIOXIDE 23 mmol/L (21-31); CHLORIDE 99 mmol/L (97-110); GLUCOSE 92 mg/dl (70-220); POTASSIUM 3.8 mmol/L (3.5-5.1); SODIUM 140 mmol/L (135-144); TOTAL PROTEIN 6.4 g/dl (6.1-8.1)
[2017-10-07 05:32] LABS: ASPARTATE AMINO TRANSFERASE 789 IU/L (15-46); CREATININE 3.96 mg/dl (0.61-1.24)
[2017-10-07] MEDS: OCTREOTIDE 50 MCG INJ SC ×3 (08:30→22:55)
[2017-10-07] MEDS: RIFAXIMIN 550 MG TAB PO ×2 (08:30→20:59)
[2017-10-07] MEDS: CITRIC ACID/SODIUM CITRATE 15 ML CUP PO ×3 (08:30→21:00)
[2017-10-07] MEDS: AMIODARONE 200 MG TAB PO ×2 (08:31→20:59)
[2017-10-07] MEDS: MIDODRINE 5 MG TAB PO ×2 (08:31→16:57)
[2017-10-07] MEDS: FAMOTIDINE 20 MG TAB PO (08:31)
[2017-10-07] MEDS: POLYETHYLENE GLYCOL 17 GM PACKET PO (08:36)
[2017-10-07] MEDS: LACTULOSE 30ML CUP PO ×2 (08:36→21:00)
[2017-10-07] MEDS: DOCUSATE SODIUM 100 MG CAP PO (08:36)
[2017-10-07] MEDS: ALBUMIN HUMAN 25% 100 ML IV (13:31)
[2017-10-07] MEDS: PHENYLephrine 20MG IN 250 ML 250 ML IV (14:23)
[2017-10-07] MEDS: HEPARIN 1000 UNITS/ML 10 ML INJ CATHETER (16:35)
[2017-10-07] MEDS: oxyCODONE 5 MG TAB PO (17:09)
[2017-10-08 05:23] LABS: ALANINE AMINOTRANSFERASE 153 IU/L (13-69); ALBUMIN 3.1 g/dl (3.3-4.9); ALBUMIN/GLOBULIN RATIO 1.14; ALKALINE PHOSPHATASE 79 IU/L (42-121); ANION GAP 17 (8-16); ASPARTATE AMINO TRANSFERASE 624 IU/L (15-46); BILIRUBIN,INDIRECT 2.8 mg/dl (0-1.1); BILIRUBIN,TOTAL 14.7 mg/dl (0.2-1.3); BLOOD UREA NITROGEN 31 mg/dl (7-20); CARBON DIOXIDE 26 mmol/L (21-31); CHLORIDE 99 mmol/L (97-110); CREATININE 3.85 mg/dl (0.61-1.24); GLUCOSE 85 mg/dl (70-220); POTASSIUM 3.9 mmol/L (3.5-5.1); SODIUM 138 mmol/L (135-144); TOTAL PROTEIN 5.8 g/dl (6.1-8.1)
[2017-10-08] MEDS: DILTIAZEM-D5W 125MG/125ML DRIP 125 ML IV (06:03)
[2017-10-08] MEDS: AMIODARONE 200 MG TAB PO ×2 (08:04→20:28)
[2017-10-08] MEDS: OCTREOTIDE 50 MCG INJ SC ×3 (08:04→21:44)
[2017-10-08] MEDS: MIDODRINE 5 MG TAB PO ×2 (08:04→16:51)
[2017-10-08] MEDS: RIFAXIMIN 550 MG TAB PO ×2 (08:04→20:28)
[2017-10-08] MEDS: FAMOTIDINE 20 MG TAB PO (08:04)
[2017-10-08] MEDS: CITRIC ACID/SODIUM CITRATE 15 ML CUP PO ×3 (08:04→20:28)
[2017-10-08] MEDS: LACTULOSE 30ML CUP PO (08:20)
[2017-10-08] MEDS: oxyCODONE 5 MG TAB PO ×2 (08:20→20:29)
[2017-10-08] MEDS: PHENYLephrine 40 MG in DEXTROSE 5% 496 ML IV (21:48)
[2017-10-09 05:16] LABS: ALANINE AMINOTRANSFERASE 145 IU/L (13-69); ALBUMIN 3.2 g/dl (3.3-4.9); ALBUMIN/GLOBULIN RATIO 1.06; ALKALINE PHOSPHATASE 90 IU/L (42-121); ANION GAP 19 (8-16); ASPARTATE AMINO TRANSFERASE 556 IU/L (15-46); BILIRUBIN,INDIRECT 2.6 mg/dl (0-1.1); BILIRUBIN,TOTAL 15.4 mg/dl (0.2-1.3); BLOOD UREA NITROGEN 39 mg/dl (7-20); CALCIUM 8.7 mg/dl (8.4-10.2); CARBON DIOXIDE 25 mmol/L (21-31); CHLORIDE 97 mmol/L (97-110); GLUCOSE 104 mg/dl (70-220); POTASSIUM 3.7 mmol/L (3.5-5.1); SODIUM 137 mmol/L (135-144); TOTAL PROTEIN 6.2 g/dl (6.1-8.1)
[2017-10-09 05:19] LABS: PHOSPHORUS 5.7 mg/dl (2.5-4.9)
[2017-10-09 05:19] LABS: MAGNESIUM 2.2 mg/dl (1.7-2.5)
[2017-10-09] MEDS: PHENYLephrine 40 MG in DEXTROSE 5% 496 ML IV ×2 (05:28→13:57)
[2017-10-09] MEDS: LACTULOSE 30ML CUP PO (09:53)
[2017-10-09] MEDS: FAMOTIDINE 20 MG TAB PO (09:53)
[2017-10-09] MEDS: CITRIC ACID/SODIUM CITRATE 15 ML CUP PO ×3 (09:53→20:33)
[2017-10-09] MEDS: MIDODRINE 5 MG TAB PO ×2 (09:54→18:18)
[2017-10-09] MEDS: RIFAXIMIN 550 MG TAB PO ×2 (09:54→20:33)
[2017-10-09] MEDS: AMIODARONE 200 MG TAB PO ×2 (09:54→20:33)
[2017-10-09] MEDS: OCTREOTIDE 50 MCG INJ SC ×3 (09:56→20:33)
[2017-10-09] MEDS: oxyCODONE 5 MG TAB PO (20:34)
[2017-10-10] MEDS: PHENYLephrine 40 MG in DEXTROSE 5% 496 ML IV (02:47)
[2017-10-10] MEDS: oxyCODONE 5 MG TAB PO (04:29)
[2017-10-10] MEDS: ONDANSETRON 4 MG INJ IV (06:23)
[2017-10-10] MEDS ORDERED: AMIODARONE 200 MG TAB PO (14:00)
[2017-10-10] MEDS ORDERED: ACETAMINOPHEN 650 MG SUPP PR (15:30)
[2017-10-10] MEDS ORDERED: DIMETHICONE STICK TOP (15:30)
[2017-10-10] MEDS ORDERED: ONDANSETRON 4 MG INJ IV (15:30)
[2017-10-10] MEDS ORDERED: ATROPINE 1% 5 ML OPH SL (15:30)
[2017-10-10] MEDS ORDERED: LORAZEPAM 2 MG INJ IV (15:30)
[2017-10-10] MEDS ORDERED: ARTIFICIAL TEARS 15 ML OPH BOTH EYES (15:30)
[2017-10-10] MEDS: HYDROmorphONE 1 MG/ML SYG IV (18:31)
[2017-10-11] MEDS: HYDROmorphONE 1 MG/ML SYG IV (00:10)
[2017-10-11] MEDS ORDERED: HYDROmorphONE 0.5 MG/0.5 ML SYG IV (06:07)
[2017-10-11] MEDS: HYDROmorphONE 0.5 MG/0.5 ML SYG IV ×4 (06:14→16:08)
[2017-10-11] MEDS ORDERED: ONDANSETRON 4 MG INJ IV (11:30)
[2017-10-11] MEDS ORDERED: LORAZEPAM 2 MG INJ IV (12:00)
[2017-10-11] MEDS: HYDROmorphONE 50 MG in DEXTROSE 5% 45 ML IV (18:55)
[2017-10-11] MEDS: DIPHENHYDRAMINE 50 MG INJ IV (20:29)
[2017-10-12] MEDS: DIPHENHYDRAMINE 50 MG INJ IV (03:05)
[2017-10-12] MEDS ORDERED: HYDROmorphONE 2 MG/ML SYG IV (11:00)
== END 2017-10-12 11:57 | disposition expired | DRG 441 ==
LOC: PP2 21:11 → ICU 10-03 11:49 → E/R 13:32 → PP2 18:44 → MS1 10-10 16:25
PROC: 5A1D70Z Performance of Urinary Filtration, Intermittent, Less than 6 Hours Per Day (ICD-10-PCS; principal; 2017-10-03)
PROC: 02HV33Z Insertion of Infusion Device into Superior Vena Cava, Percutaneous Approach (ICD-10-PCS; 2017-10-03)
PROC: 05HM33Z Insertion of Infusion Device into Right Internal Jugular Vein, Percutaneous Approach (ICD-10-PCS; 2017-10-03)
DX: K72.90 Hepatic failure, unspecified without coma (principal); N17.0 Acute kidney failure with tubular necrosis; K76.7 Hepatorenal syndrome; A41.9 Sepsis, unspecified organism; C78.7 Secondary malignant neoplasm of liver and intrahepatic bile duct; C78.00 Secondary malignant neoplasm of unspecified lung; C79.51 Secondary malignant neoplasm of bone; E87.2 Acidosis; R18.8 Other ascites; N30.00 Acute cystitis without hematuria; E80.6 Other disorders of bilirubin metabolism; C61 Malignant neoplasm of prostate; I48.0 Paroxysmal atrial fibrillation; R74.0 Nonspecific elevation of levels of transaminase and lactic acid dehydrogenase [LDH]; N30.90 Cystitis, unspecified without hematuria; B95.2 Enterococcus as the cause of diseases classified elsewhere; Z72.0 Tobacco use; Z91.19 Patient's noncompliance with other medical treatment and regimen; I95.9 Hypotension, unspecified; I48.91 Unspecified atrial fibrillation; E87.5 Hyperkalemia; Z66 Do not resuscitate
CPT/HCPCS: 36569; 70450; 71045; 71250; 74176; 76705; 76775; 76937; 80048; 80053; 80162; 81001; 82140; 82787; 82962; 83690; 83735; 84075; 84100; 84153; 84154; 84155; 84300; 84439; 84443; 85025; 85610; 85730; 86038; 86255; 86376; 86703; 86704; 86709; 86803; 87081; 87086; 87340; 90935; 93005; 93306; 96374; 96375; 97110; 97162; 97530; 99285-25